=== PATIENT | female | born 1965 | race Caucasian/White ===

== ENCOUNTER 2017-05-12 14:02 | Emergency (ER) | payer OTHER, MEDICARE ==
[~2017-05-12] VITALS: Ht 167.6 cm; Wt 64.4 kg
--- NOTE | ~2017-05-12 | CR20 ---
[facility]. [facility] A Service of [facility] & [facility] RADIOLOGY TEXT RESULTS PATIENT: CARLITO JAIMES LOCATION: SED : 69 UNIT #: [id number] AGE: [address]: DIAMOND SCRUGGS SEX: F ORDER DR: [id number] [address] [address] [id number] E MR#: [id number] Acc #: [id number] NAME: CARLITO JAIMES : 1965 SEX: F STUDY DATE/TIME: 05/12/2017 14:15 UNIT: SED ROOM: STUDY DESCRIPTION: CR Ankle Min 3 Views Lt Ordering Physician: [facility] MEDICAL IMAGING REPORT This report is preliminary unless electronic signature is present. EXAM 3 views left ankle 05/12/2017 HISTORY Left ankle pain and bruising on the lateral side since yesterday. COMPARISON None. FINDINGS AP, lateral, and oblique projections of the ankle show satisfactory integrity of the joint mortise with a smooth articular surface. There is no identifiable fracture, dislocation, or radiopaque foreign body. IMPRESSION Normal left ankle. Dictated by... Alma Rosa Lehman M.D. THIS IS AN ELECTRONICALLY VERIFIED REPORT Alma Rosa Lehman M.D. at 05/13/2017 1:54 PM LLH/pcl TD: 05/12/2017 20:32 JOB #: [id number] MEDICAL IMAGING REPORT Page 1 of 1
[~2017-05-12 14:02] MED LIST: AMITRYPTYLINE PO; BACTRIM DS TABL1 TA1 PO; CELEXA PO; DEPO-PROVER150 MG/ML INJ; FLEXERIL PO; KLONOPIN PO; LEXAPRO PO; MEDROL PO; NAPROXEN PO; NEURONTIN800 MG PO; PEN-VEE K PO; PHENERGAN25 MG PO; SEROQUEL XR50 MG PO; ULTRAM PO; VOLTAREN75 MG PO
[2017-05-12] MEDS ORDERED: CYMBALTA (14:06)
[2017-05-12] MEDS ORDERED: AMBIEN10 MG PO (14:07)
[2017-05-12] MEDS ORDERED: GABAPENTIN800 MG PO (14:07)
[2017-05-12] MEDS ORDERED: KLONOPIN PO (14:07)
== END 2017-05-12 15:49 | disposition home or self-care (01) ==
LOC: SED 14:02
DX: S90.02XA Contusion of left ankle, initial encounter (principal); W22.8XXA Striking against or struck by other objects, initial encounter; Y92.009 Unspecified place in unspecified non-institutional (private) residence as the place of occurrence of the external cause
CPT/HCPCS: 29530; 73610; 99283